=== PATIENT | male | born 1955 | race Caucasian/White ===

== ENCOUNTER 2023-06-25 18:39 | Emergency (ER) | payer MEDICARE, SELFPAY ==
[2023-06-25 18:50] VITALS: BP 143/78; PULSE 95; RESP 18; TEMP 36.6; O2SAT 100
[2023-06-25 18:51] VITALS: BP 143/78; PULSE 95; RESP 18; TEMP 36.6; O2SAT 100
--- NOTE | 2023-06-25 18:51 | ED.URI ---
HPI - URI/Sore Throat General Chief Complaint: Upper Respiratory Infection Stated Complaint: Sore Throat, Headache, Sinus Problems Time Seen by Provider: 06/25/23 18:51 Source: patient and RN notes reviewed Mode of arrival: ambulatory Limitations: no limitations History of Present Illness HPI Narrative: 67-year-old male presents concern for nasal congestion, sore throat that started today. He reports nasal congestion is only on the left side. Reports sore throat resolved after he woke up this morning. He reports headache. he denies fever, aches, chills, sweats, cough. He has not taken any [id number] medications. MD elicited complaint: cough and sore throat Related Data Home Medications Medication Instructions Recorded Confirmed Saccharomyces boulardii 250 mg 250 mg PO BID 01/17/22 capsule (Daily Probiotic (S. boulardii)) apple cider vinegar 500 mg tablet mg PO 01/17/22 atorvastatin 10 mg tablet 10 mg PO DAILY 01/17/22 biotin 1,000 mcg chewable tablet 1,000 mcg PO DAILY 01/17/22 fenofibrate 160 mg tablet 160 mg PO DAILY 01/17/22 multivitamin (Daily Multi-Vitamin 1 tablet PO DAILY 01/17/22 tablet) multivitamin with minerals 1 tablet PO DAILY 01/17/22 (Hair,Skin and Nails tablet) niacin 500 mg tablet 500 mg PO TID 01/17/22 apixaban 5 mg tablet (Eliquis) mg 06/25/23 Allergies Allergy/AdvReac Type Severity Reaction Status Date / Time atenolol AdvReac diarrhea, Verified 05/09/23 14:27 nausea Review of Systems Review of Systems: CONSTITUTIONAL: Denies malaise, chills, sweats, or fever. EYES: Denies visual changes, redness, or discharge. ENT: Denies rhinorrhea, sinus pain, otalgia. Reports congestion and and sore throat. CARDIOVASCULAR: Denies chest pain, palpitations, or edema. RESPIRATORY: Reports cough. Denies dyspnea. GASTROINTESTINAL: Denies abdominal pain, nausea, vomiting, diarrhea SKIN: Denies rash or itching. MUSCULOSKELETAL: Denies myalgia. NEUROLOGIC: Reports headache. All systems reviewed & are unremarkable except as noted in HPI and below PMFSH Past Medical History Medical History (Updated 06/25/23 @ 18:59 by Daphne Rinaldi NP) Cataract fragments of eye following cataract surgery CKD (chronic kidney disease) Diabetes Diabetic foot Encounter for screening for malignant neoplasm of prostate Hyperlipidemia Hypertension Need for influenza vaccination Rash Scabies Toenail deformity Toenail fungus Surgical History Surgical History H/O colonoscopy 3-4 years ago H/O hernia repair Hx of appendectomy Family History Family History Father Acute myocardial infarction Kidney failure Heart disease Mother Cancer Social History Social History Smoking status: Current some day smoker Tobacco type: cigars Second hand tobacco smoke exposure: No Alcohol intake: current Substance use: never Substance use type: does not use Living arrangements: with family Occupation/Education: occupation 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 Gender identity (if verbalized by the patient): Male Sexual Orientation (if Verbalized by the Patient): Straight or Heterosexual Agree to blood products: Yes Comments At time of signature, agree with nursing past medical, surgical, social and family history. There is no relevant family history pertinent to the presenting complaint Exam Narrative: GENERAL: Well-appearing, well-nourished, and in no acute distress. HEAD: Normocephalic EYES: PERRLA, conjunctivae clear ENT: Nares clear, turbinates edematous and erythematous, clear discharge. Mucous membranes moist. TM pearly toscano with sharp light reflex bilaterally; no tragal tenderness. Oropharynx not erythematous without lesions. Tonsils not enla
== END 2023-06-25 19:07 | disposition home or self-care (01) ==
PROVIDERS: Emergency Provider Nurse Practitioner; PCP Family Medicine
DX: J06.9 Acute upper respiratory infection, unspecified (principal); F17.200 Nicotine dependence, unspecified, uncomplicated; I12.9 Hypertensive chronic kidney disease with stage 1 through stage 4 chronic kidney disease, or unspecified chronic kidney disease; E11.22 Type 2 diabetes mellitus with diabetic chronic kidney disease; N18.9 Chronic kidney disease, unspecified; E78.5 Hyperlipidemia, unspecified; F17.290 Nicotine dependence, other tobacco product, uncomplicated
CPT/HCPCS: 99213; G0463

== ENCOUNTER 2023-11-27 18:00 | Emergency (ER) | payer MEDICARE, SELFPAY ==
[2023-11-27 18:17] VITALS: BP 126/75; PULSE 65; RESP 18; TEMP 36.8; O2SAT 99
--- NOTE | 2023-11-27 18:19 | ED.URI ---
HPI - URI/Sore Throat General Chief Complaint: Upper Respiratory Infection Stated Complaint: Cold symptoms Time Seen by Provider: 11/27/23 18:19 Source: patient Mode of arrival: ambulatory Limitations: no limitations History of Present Illness HPI Narrative: Claudio is a 68-year-old male patient presenting to the clinic today with complaints of nasal congestion, sneezing, ear pain, sore throat, and nonproductive cough since last night. He reports he did an at-home COVID test this evening and was positive. He wanted to come in to be checked out to make sure that his COVID testing was positive. MD elicited complaint: cough, sore throat and nasal congestion Related Data Home Medications Medication Instructions Recorded Confirmed Saccharomyces boulardii 250 mg 250 mg PO BID 01/17/22 capsule (Daily Probiotic (S. boulardii)) apple cider vinegar 500 mg tablet mg PO 01/17/22 atorvastatin 10 mg tablet 10 mg PO DAILY 01/17/22 biotin 1,000 mcg chewable tablet 1,000 mcg PO DAILY 01/17/22 fenofibrate 160 mg tablet 160 mg PO DAILY 01/17/22 multivitamin (Daily Multi-Vitamin 1 tablet PO DAILY 01/17/22 tablet) multivitamin with minerals 1 tablet PO DAILY 01/17/22 (Hair,Skin and Nails tablet) niacin 500 mg tablet 500 mg PO TID 01/17/22 apixaban 5 mg tablet (Eliquis) mg 06/25/23 Allergies Allergy/AdvReac Type Severity Reaction Status Date / Time atenolol AdvReac diarrhea, Verified 07/16/23 08:27 nausea Review of Systems Review of Systems: Pertinent positives per HPI. Patient denies any fever, chills, rash, visual changes, dizziness, shortness of breath, chest pain, palpitations, nausea, vomiting, diarrhea, constipation, abdominal pain, or any urinary issues. [facility] Past Medical History Medical History Cataract fragments of eye following cataract surgery CKD (chronic kidney disease) Diabetes Diabetic foot Encounter for screening for malignant neoplasm of prostate Hyperlipidemia Hypertension Need for influenza vaccination Rash Scabies Toenail deformity Toenail fungus Surgical History Surgical History H/O colonoscopy 3-4 years ago H/O hernia repair Hx of appendectomy Family History Family History Father Acute myocardial infarction Kidney failure Heart disease Mother Cancer Social History Social History Smoking status: Current some day smoker Tobacco type: cigars Second hand tobacco smoke exposure: No Alcohol intake: current Substance use: never Substance use type: does not use Living arrangements: with family Occupation/Education: occupation 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 Gender identity (if verbalized by the patient): Male Sexual Orientation (if Verbalized by the Patient): Straight or Heterosexual Agree to blood products: Yes Comments At the time of my signature, I reviewed and agree with the nursing past medical, surgical, social, and family history. There is no relevant family history pertinent to the patient complaint. Exam Narrative: General: Well-developed, well nourished, in no apparent distress Head: Normocephalic, atraumatic Eyes: Pupils equally round and reactive to light bilaterally, EOM intact, sclera and conjunctive clear, no discharge, lids normal Ears: TMs intact and clear, ear canals clear, no drainage, grossly hearing normal. Nose: Nares patent, clear nasal discharge, no inflammation, no sinus tenderness. Mouth: Oral pharynx without lesions or masses, good dentition, MMM. Neck: Supple, trachea midline, no enlargement of anterior or posterior cervical nodes, no thyroid masses or goiter palpable. Cardio: Regular rate and rhythm, s1 and
== END 2023-11-27 18:50 | disposition home or self-care (01) ==
PROVIDERS: Emergency Provider Nurse Practitioner Family
DX: U07.1 COVID-19 (principal); I12.9 Hypertensive chronic kidney disease with stage 1 through stage 4 chronic kidney disease, or unspecified chronic kidney disease; E11.22 Type 2 diabetes mellitus with diabetic chronic kidney disease; N18.9 Chronic kidney disease, unspecified; E78.5 Hyperlipidemia, unspecified
CPT/HCPCS: 87426; 99212; G0463

== ENCOUNTER 2024-06-10 00:07 | Day surgery (SDC) | payer MEDICARE, SELFPAY ==
[2024-06-01 11:06] VITALS: BMI 26.6
--- NOTE | 2024-06-01 11:21 | SUR.PREOP ---
Spoke with patient regarding medication eliquis. Patient verbalizes understanding that the last dose is to be taken on 06/06/2024 and the Endoscopist will instruct them when to restart after the procedure.
[2024-06-10 08:02] VITALS: BP 126/86; PULSE 93; RESP 18; TEMP 36.1; O2SAT 100
[2024-06-10] MEDS: LACTATED RINGERS 1,000 ML 150 ML IV CONT (08:11)
[2024-06-10 08:15] LABS: Glucose Point of Care 125 mg/dl (65-105)
--- NOTE | 2024-06-10 08:43 | WPDANESEPPF ---
Anes - Initial Pre Proc Eval Procedure: Operation Date: 06/10/24 09:15 Proposed Procedures p Colonoscopy - Rodrigo Hamilton MD Date/Time: 06/10/24 08:43 Surgeon: Rodrigo Hamilton MD Pre Op Diagnosis: hx of colon polyps Patient Data Age: 68 Gender: M Height: 1.7 m Weight: 74.9 kg Last Vital Signs Temp 36.1 C L 06/10/24 08:02 Pulse 93 06/10/24 08:02 Resp 18 06/10/24 08:02 BP 126/86 06/10/24 08:02 Pulse Ox 100 06/10/24 08:02 O2 Del Method Room Air 06/10/24 08:02 Allergies Allergy/AdvReac Type Severity Reaction Status Date / Time atenolol AdvReac diarrhea, Verified 06/10/24 08:00 nausea metformin AdvReac Intermediate Diarrhea Uncoded 06/10/24 08:00 Home Medications ?Medication ?Instructions ?Recorded ?Confirmed ?Type apple cider vinegar 500 mg tablet 500 mg PO DAILY 01/17/22 06/10/24 History atorvastatin 10 mg tablet 10 mg PO DAILY 01/17/22 06/10/24 History biotin 1,000 mcg chewable tablet 1,000 mcg PO DAILY 01/17/22 06/10/24 History fenofibrate 160 mg tablet 160 mg PO DAILY 01/17/22 06/10/24 History multivitamin with minerals 1 tablet PO DAILY 01/17/22 06/01/24 History (Hair,Skin and Nails tablet) niacin 500 mg tablet 500 mg PO TID 01/17/22 06/10/24 History blood-glucose meter (OneTouch #1 ea 04/12/22 06/01/24 Rx Verio Flex Meter) apixaban 5 mg tablet (Eliquis) 5 mg PO Q12H 06/25/23 06/10/24 History ascorbic acid 7.5 mg-vit E 7.5 1 tablet PO DAILY 11/27/23 06/10/24 History unit-biotin 1,250 mcg chewable tablet (Hair,Skin,Nails with Biotin) cholecalciferol (vitamin D3) 10 10 mcg PO DAILY 11/27/23 06/10/24 History mcg (400 unit) tablet dapagliflozin propanediol 10 mg 10 mg PO DAILY 11/27/23 06/10/24 History tablet (Farxiga) saw palmetto 450 mg capsule 450 mg PO DAILY 11/27/23 06/10/24 History metoprolol tartrate 25 mg tablet 12.5 mg (1/2 x 25 mg) PO BID #90 02/21/24 06/10/24 Rx tabs glimepiride 4 mg tablet 4 mg PO BID #180 tabs 02/28/24 06/10/24 Rx blood sugar diagnostic (OneTouch #100 ea 03/23/24 06/01/24 Rx Verio test strips) lisinopril 5 mg tablet 5 mg PO DAILY #90 tabs 04/30/24 06/10/24 Rx metformin 500 mg tablet,extended 500 mg PO DAILY 06/01/24 06/10/24 History release 24 hr levocetirizine 5 mg tablet 5 mg PO DAILY #90 tabs 06/08/24 06/10/24 Rx Laboratory Tests 06/10/24 08:12 POC Capillary Glucose 125 H mg/dl (65-105) Patient hx anesthesia problems: none Family hx anesthesia problems: none Results Review: All pre-operative results and documents have been reviewed as part of the pre-operative evaluation. [facility] Past Medical History Medical History A-fib Encounter for screening for malignant neoplasm of prostate CKD (chronic kidney disease) Hyperlipidemia Hypertension Diabetes Cataract fragments of eye following cataract surgery Surgical History Surgical History History of detached retina repair History of bilateral cataract extraction H/O colonoscopy 3-4 years ago Hx of appendectomy H/O hernia repair Family History Family History Father Acute myocardial infarction Kidney failure Heart disease Mother Cancer Social History Social History Smoking status: Current some day smoker Tobacco type: cigars Second hand tobacco smoke exposure: No Alcohol intake: current Alcohol use details: 1 Substance use: never Substance use type: does not use Living arrangements: with family Additional living arrangements comments: with sp Occupation/Education: occupation 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 Gender identity (if verbalized by the patient): Male Sexual Orientation (if Verbalized by the Patient): Straight or Heterosexual Agree to blood products: Yes Anes - Eval Final PreProcedure Day of Procedure 06/10/24 08:43 Patient weight: normal Heart: regular rate and rhythm Lungs: clear to auscultation Airway: Mallampati scale class II Neurological: alert and oriented Last oral intake: >/= 8 hours ASA classification: III Emergent: no Anesthetic plan: proceed Anesthesia type and monitoring: general GIVS and standard monitoring Results Review: All pre-operative results and documents have been reviewed as part of the pre-operative evaluation. Informed Consent: The patient's anesthetic plan and its attendant risks and benefits were discussed with the patient/family/POA. Questions were solicited and answers provided to the satisfaction of the patient/family/POA.
--- NOTE | 2024-06-10 09:20 | PM.IMHP ---
H&P: HPI History of Present Illness Date/Time: 06/10/24 09:20 Chief Complaint: history of colon polyps Narrative: The patient has a history of colonic polyps, the last colonoscopy was in 2019. Review of Systems Review of Systems: All systems reviewed & are unremarkable except as noted in HPI and below PMFSH Past Medical History Medical History A-fib Encounter for screening for malignant neoplasm of prostate CKD (chronic kidney disease) Hyperlipidemia Hypertension Diabetes Cataract fragments of eye following cataract surgery Surgical History Surgical History History of detached retina repair History of bilateral cataract extraction H/O colonoscopy 3-4 years ago Hx of appendectomy H/O hernia repair Family History Family History Father Acute myocardial infarction Kidney failure Heart disease Mother Cancer Social History Social History Smoking status: Current some day smoker Tobacco type: cigars Second hand tobacco smoke exposure: No Alcohol intake: current Alcohol use details: 1 Substance use: never Substance use type: does not use Living arrangements: with family Additional living arrangements comments: with sp Occupation/Education: occupation 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 Gender identity (if verbalized by the patient): Male Sexual Orientation (if Verbalized by the Patient): Straight or Heterosexual Agree to blood products: Yes Meds Home Medications and Allergies Home Medications ?Medication ?Instructions ?Recorded ?Confirmed ?Type apple cider vinegar 500 mg tablet 500 mg PO DAILY 01/17/22 06/10/24 History atorvastatin 10 mg tablet 10 mg PO DAILY 01/17/22 06/10/24 History biotin 1,000 mcg chewable tablet 1,000 mcg PO DAILY 01/17/22 06/10/24 History fenofibrate 160 mg tablet 160 mg PO DAILY 01/17/22 06/10/24 History multivitamin with minerals 1 tablet PO DAILY 01/17/22 06/01/24 History (Hair,Skin and Nails tablet) niacin 500 mg tablet 500 mg PO TID 01/17/22 06/10/24 History blood-glucose meter (OneTouch #1 ea 04/12/22 06/01/24 Rx Verio Flex Meter) apixaban 5 mg tablet (Eliquis) 5 mg PO Q12H 06/25/23 06/10/24 History ascorbic acid 7.5 mg-vit E 7.5 1 tablet PO DAILY 11/27/23 06/10/24 History unit-biotin 1,250 mcg chewable tablet (Hair,Skin,Nails with Biotin) cholecalciferol (vitamin D3) 10 10 mcg PO DAILY 11/27/23 06/10/24 History mcg (400 unit) tablet dapagliflozin propanediol 10 mg 10 mg PO DAILY 11/27/23 06/10/24 History tablet (Farxiga) saw palmetto 450 mg capsule 450 mg PO DAILY 11/27/23 06/10/24 History metoprolol tartrate 25 mg tablet 12.5 mg (1/2 x 25 mg) PO BID #90 02/21/24 06/10/24 Rx tabs glimepiride 4 mg tablet 4 mg PO BID #180 tabs 02/28/24 06/10/24 Rx blood sugar diagnostic (OneTouch #100 ea 03/23/24 06/01/24 Rx Verio test strips) lisinopril 5 mg tablet 5 mg PO DAILY #90 tabs 04/30/24 06/10/24 Rx metformin 500 mg tablet,extended 500 mg PO DAILY 06/01/24 06/10/24 History release 24 hr levocetirizine 5 mg tablet 5 mg PO DAILY #90 tabs 06/08/24 06/10/24 Rx Allergies Allergy/AdvReac Type Severity Reaction Status Date / Time atenolol AdvReac diarrhea, Verified 06/10/24 08:00 nausea metformin AdvReac Intermediate Diarrhea Uncoded 06/10/24 08:00 Vital Signs Vital Signs - 24 hr 06/10/24 08:02 Temperature 97 F L Pulse Rate 93 Respiratory Rate 18 Blood Pressure 126/86 Pulse Oximetry 100 Oxygen Delivery Room Air Exam Const: General: cooperative and healthy appearing Resp: Effort & Inspection: normal respiratory effort and able to speak in complete sentences Auscultation: clear to auscultation bilaterally Cardio: Rate: regular rate Rhythm: regular rhythm GI: Inspection: normal to inspection GI Palp: No No hepatosplenomegaly present Auscultation: normal bowel sounds Rectal Exam: deferred Skin: General skin exam: normal color Psych: Appearance: grossly normal Mental Status: mental status grossly normal Assessment and Plan Assessment and plan (1) History of colonic polyps: Code(s): Z86.0100 - Personal history of colon polyps, unspecified Status: Acute Assessment and Plan: The patient is deemed a good candidate for the procedure. Consent signed. Will proceed.
[2024-06-10] MEDS: SIMETHICONE ORAL SUSPENSION 20 MG/0.3 ML 30 ML BOTTLE 0.6 ML IRRIGATION (09:35)
[2024-06-10 09:59] VITALS: BP 112/72; PULSE 77; RESP 22; O2SAT 99
[2024-06-10 10:09] VITALS: BP 121/77; PULSE 75; RESP 15; O2SAT 100
[2024-06-10 10:25] VITALS: BP 129/82; PULSE 78; RESP 21; O2SAT 100
== END 2024-06-10 10:38 | disposition home or self-care (01) ==
PROVIDERS: PCP Physician Assistant Medical; Visit Provider Internal Medicine Gastroenterology
PROC: 0DJD8ZZ Inspection of Lower Intestinal Tract, Via Natural or Artificial Opening Endoscopic (ICD-10-PCS; CPT 45378; principal; 2024-06-10 09:15)
DX: Z12.11 Encounter for screening for malignant neoplasm of colon (principal); K63.5 Polyp of colon; E78.5 Hyperlipidemia, unspecified; I48.91 Unspecified atrial fibrillation; E11.22 Type 2 diabetes mellitus with diabetic chronic kidney disease; I12.9 Hypertensive chronic kidney disease with stage 1 through stage 4 chronic kidney disease, or unspecified chronic kidney disease; N18.9 Chronic kidney disease, unspecified; F17.290 Nicotine dependence, other tobacco product, uncomplicated; Z79.01 Long term (current) use of anticoagulants; Z79.84 Long term (current) use of oral hypoglycemic drugs; Z98.890 Other specified postprocedural states; Z80.9 Family history of malignant neoplasm, unspecified; Z82.49 Family history of ischemic heart disease and other diseases of the circulatory system
CPT/HCPCS: 45385; 82948; 88305; J2003; J2704; J7120